=== PATIENT | female | born 1960 | race Caucasian/White ===

== ENCOUNTER → 2017-09-30 17:45 | Outpatient (CLI) | payer OTHER, SELFPAY ==
--- NOTE | 2017-09-30 | DI.MRI.S_ITS ---
PROCEDURE: MR SHOULDER RT WO CON INDICATIONS: SHOULDER PAIN TECHNIQUE: Noncontrast oblique coronal T2 fast spin echo with fat saturation, oblique sagittal T1 spin echo and T2 fast spin echo with fat saturation, axial T1 spin echo and T2 fast spin echo with fat saturation through the shoulder. COMPARISON: None. FINDINGS: Image quality: Excellent. Rotator cuff: Tendinosis and moderate grade articular surface partial thickness tear involving distal supraspinatus is seen at its insertion on humeral head extending to the myotendinous junction. Low to moderate grade bursal surface partial thickness involving anterior fibers distal supraspinatus is also seen near the myotendinous junction. Tendinosis and low to moderate grade articular surface partial thickness tear involving distal infraspinatus at its insertion on humeral head is seen. Tendinosis of a moderate grade intrasubstance partial thickness involving distal subscapularis is also noted. Sagittal images demonstrate no significant muscle atrophy. Bones and bursae: No bone marrow contusions or fractures. Moderate a.c. joint osteoarthritis and mild glenohumeral joint osteoarthritis is seen. The acromion demonstrates conventional anatomy, without an os acromiale. Small amount of joint effusion and small to moderate amount of subacromial subdeltoid bursal fluid is seen. No gross loose body. Capsule and soft tissues: There is signal abnormality and contour irregularity involving superior posterior labrum 11 to 12:00 position suggestive of focal labral tear. The long head of the biceps tendon demonstrates normal location and morphology. The rotator interval appears normal, without fibrosis. The coracohumeral ligament is normal in thickness. IMPRESSION: 1. Osteoarthritic changes in a.c. joint and glenohumeral joint. No fracture or dislocation. 2. Tendinosis and moderate grade articular and bursal surface partial-thickness tear involving distal supraspinatus extending to involve myotendinous junction. Tendinosis of a moderate grade articular surface partial thickness involving distal infraspinatus. Moderate grade intrasubstance partial-thickness tear involving distal subscapularis. 3. Suggestion of focal superior posterior labral tear at 11 to 12:00 position. Dictated by: Israel Dozier M.D. on 09/30/2017 at 20:40 Approved by: Israel Dozier M.D. on 09/30/2017 at 20:45
--- NOTE | 2017-09-30 | DI.MRI.S_ITS ---
PROCEDURE: MR HUMERUS RT WO CON INDICATIONS: SHOULDER PAIN TECHNIQUE: Noncontrast coronal and sagittal T1 spin echo and STIR; axial T1 spin echo and T2 fast spin echo with fat saturation through the right humerus. COMPARISON: None. FINDINGS: Image quality: Excellent. Bones: There is no fracture or dislocation. Ill-defined area of T1 hypointense and T2 hyperintense signal is seen within the joint space of the proximal humeral shaft, and measures approximately 1.4 x 1.5 x 1.4 cm in size. No adjacent marrow edema or cortical erosion. No periosteal reaction or pathologic fracture. No other area of abnormal marrow signal is seen in right humeral shaft.. Soft tissues: The scanned muscles demonstrate normal overall bulk and internal signal. Subcutaneous tissues appear normal as well. No soft tissue masses are present. Bilateral breast implants are intact. IMPRESSION: 1. 1.4 x 1.5 x 1.4 cm ill-defined area of abnormal marrow signal within measuring space of the proximal humeral shaft with no adjacent periosteal reaction, or marrow edema. Finding is more likely to represent a benign process such as enchondroma or nonossifying fibroma. Clinical correlation and periodic radiographic followup is recommended. No pathologic fracture. No other area of abnormal marrow signal. 2. Please correlate with MRI of shoulder report for evaluation of internal derangement. Dictated by: Israel Dozier M.D. on 09/30/2017 at 20:48 Approved by: Israel Dozier M.D. on 09/30/2017 at 20:59
== END ==
PROVIDERS: PCP Physician Assistant Medical; Visit Provider Physician Assistant
DX: M75.111 Incomplete rotator cuff tear or rupture of right shoulder, not specified as traumatic (principal); M19.011 Primary osteoarthritis, right shoulder; M75.21 Bicipital tendinitis, right shoulder; M25.511 Pain in right shoulder
CPT/HCPCS: 73218; 73221

== ENCOUNTER → 2017-12-04 10:24 | Outpatient (CLI) | payer OTHER, SELFPAY ==
--- NOTE | 2017-12-04 | DI.CT.S_ITS ---
PROCEDURE: CT LUNG LOW DOSE SCREENING INDICATIONS: TOBACCO ABUSE TECHNIQUE: Noncontrast 2.0-2.5 mm thick sections acquired from the pulmonary apices to the posterior costophrenic angles. 7 mm thick coronal and sagittal MIP reformats were then acquired. A low radiation dose technique was utilized. COMPARISON: None. FINDINGS: Image quality: Diagnostic, given the low radiation dose technique. Lungs and pleura: No acute consolidation. There is scattered subsegmental atelectasis and/or scarring No pleural effusions or pneumothorax. Central airway bronchial wall thickening 5 mm pulmonary nodule seen in the medial left lower lobe image 99 series 3. Additional 4 mm nodule seen in the lateral left lower lobe on image 111 series 3. Groundglass 2 mm nodule seen in the superior segment of the right lower lobe. Incidentally noted patchy nodular areas of groundglass opacities involving upper lobes presumably respiratory bronchitis (smoking related) Mediastinum: Heart size is normal. Trace anterior pericardial effusion. No mediastinal adenopathy by size criteria. Thoracic aorta and central pulmonary arteries are normal in size. Esophagus is normal in caliber. No hiatal hernia. Bones and chest wall: No suspicious bony lesions. No vertebral body compression fractures. No axillary or supraclavicular adenopathy by size criteria. Thyroid gland unremarkable. Bilateral breast prostheses incidentally noted. There is scoliosis Abdomen: Visualized upper abdomen solid organs and bowel loops appear normal in the absence of contrast. IMPRESSION: Lung RADS 2. Scattered nonspecific bilateral subcentimeter nodules measuring up to 5 mm (left lower lobe) Central bronchial wall thickening suggestive of nonspecific bronchitis. LUNG-RADS 2; recommend [address] followup. Dictated by: Darryn Funk M.D. on 12/04/2017 at 12:32 Approved by: Darryn Funk M.D. on 12/04/2017 at 12:42
== END ==
PROVIDERS: PCP Physician Assistant Medical; Visit Provider Physician Assistant Medical
DX: Z12.2 Encounter for screening for malignant neoplasm of respiratory organs (principal); Z72.0 Tobacco use; R91.8 Other nonspecific abnormal finding of lung field
CPT/HCPCS: 71250

== ENCOUNTER → 2018-01-05 15:02 | Outpatient (CLI) | payer OTHER, SELFPAY ==
--- NOTE | 2018-01-05 | DI.MG.S_ITS ---
BILATERAL DIGITAL SCREENING MAMMOGRAM 3D/2D WITH CAD WITH AUGMENTATION: 01/05/2018 CLINICAL: Routine screening. Comparison is made to exams dated: 02/27/2016 mammogram, 07/06/2013 mammogram, and 12/28/2012 mammogram - [facility]. There are scattered fibroglandular elements in both breasts. Current study was also evaluated with a Computer Aided Detection (CAD) system. Bilateral breast implants are intact. No significant masses, calcifications, or other findings are seen in either breast. There has been no significant interval change. IMPRESSION: NEGATIVE There is no mammographic evidence of malignancy. A 1 year screening mammogram is recommended. NOTE: For mammograms, a report in lay terms will be sent to the patient. Approximately 15% of breast malignancies will not be visualized mammographically. In the management of a palpable breast mass, a negative mammogram must not discourage biopsy of a clinically suspicious lesion. Electronically Signed By: Grace duran/stuart:01/06/2018 14:00:47 letter sent: Normal Exam ACR BI-RADS Category 1: Negative 3341F
== END ==
PROVIDERS: PCP Physician Assistant Medical; Visit Provider Physician Assistant Medical
DX: Z12.31 Encounter for screening mammogram for malignant neoplasm of breast (principal)
CPT/HCPCS: 77063; 77067

== ENCOUNTER 2018-06-15 17:16 | Emergency (ER) | payer OTHER, SELFPAY ==
[2018-06-15 17:23] VITALS: BP 129/60; PULSE 97; RESP 14; TEMP 36.7; O2SAT 98; BMI 22.7
--- NOTE | 2018-06-15 17:27 | ED.BACK ---
HPI - Back Pain/Injury <Snehal Dailey PA-C - Last Filed: 06/15/18 21:39> General Chief Complaint: Back Pain/Injury Stated Complaint: Severe back pain Time Seen by Provider: 06/15/18 17:25 Source: patient Mode of arrival: ambulatory Limitations: no limitations History of Present Illness HPI Narrative: This 57-year-old female comes to ED secondary to exacerbation of chronic back pain. 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 She notes that she is scheduled to have shoulder surgery on and due to that unable to take her usual ibuprofen, which she thinks his part of the problem. She has continued her gabapentin 1200 mg t.i.d. and also Vicodin as needed. She gets sciatica and states she does have pain and tingling radiating down her left leg which is typical with these exacerbations. She states that her leg feels weak at times which she thinks is due to pain, this is also typical of her exacerbations. She states that maybe her groin felt numb 2 days ago, not today. She is not having any difficulty urinating, no bowel changes. She states pain on the left side of her back is worse with especially twisting and bending, and also sneeze, cough, anything that pulls on her back. She denies chest pain or dyspnea. She denies any new rash. She denies any dysuria, hematuria or other new complaints on systems review Related Data Previous Rx's Medication Instructions Recorded cyclobenzaprine 10 mg PO Q8H #10 tab 06/15/18 hydrocodone-acetaminophen [Prospect] 2 tab PO Q4-6H PRN #5 tab 06/15/18 lidocaine [Lidoderm] 2 patch TOP DAILY #30 each 06/15/18 Allergies Allergy/AdvReac Type Severity Reaction Status Date / Time No Known Drug Allergies Allergy Verified 06/15/18 17:23 Review of Systems <Snehal Dailey PA-C - Last Filed: 06/15/18 21:39> Review of Systems ROS Unobtainable: All systems reviewed & are unremarkable except as noted in HPI and below PFSH <Snehal Dailey PA-C - Last Filed: 06/15/18 21:39> Medical History (Updated 06/15/18 @ 18:02 by Snehal Dailey PA-C) COPD (chronic obstructive pulmonary disease) (Chronic) Chronic back pain (Chronic) 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 PULMONARY: Lungs clear to auscultation bilaterally CV: Regular rhythm regular without murmur, normal S1 and S2, no S3 or S4 MUSCULOSKELETAL: No point tenderness over the lumbar spine. Tender over the left superior to mid lumbar paraspinal musculature to the midline at the MSL, where there is palpable tightness. She is able to flex spine to 90 degrees and fully extend with slight endpoint tenderness. Reduced bilateral rotation and lateral bend secondary to tenderness. she is somewhat stiff with sit to stand but gait is normal once moving. Lower extremity strength 5/5 bilateral hip flexors, knee extensors, foot plantar flexion. Negative modified straight leg raise NEUROLOGIC: Bilateral patellar and Achilles DTRs 2+ DERMATOLOGIC: No exanthem Initial Vital Signs Initial Vital Signs: Vital Signs Temperature 98.1 F 06/15/18 17:23 Pulse Rate 97 H 06/15/18 17:23 Respiratory Rate 14 06/15/18 17:23 Blood Pressure 129/60 06/15/18 17:23 Pulse Oximetry 98 06/15/18 17:23 <Jb Castro DO - Last Filed: 06/16/18 02:15> Initial Vital Signs Initial Vital Signs: Vital Signs Temperature 98.1 F 06/15/18 17:23 Pulse Rate 97 H 06/15/18 17:23 Respiratory Rate 14 06/15/18 17:23 Blood Pressure 129/60 06/15/18 17:23 Pulse Oximetry 98 06/15/18 17:23 Course <Snehal Dailey PA-C - Last Filed: 06/15/18 21:39> Vital Signs - 8 hr 06/15/18 17:23 Temperature 98.1 F Pulse Rate 97 H Respiratory Rate 14 Blood Pressure 129/60 Pulse Oximetry 98 <Jb Castro DO - Last Filed: 06/16/18 02:15> Vital Signs - 8 hr 06/15/18 17:23 Temperature 98.1 F Pulse Rate 97 H Respiratory Rate 14 Blood Pressure 129/60 Pulse Oximetry 98 Discharge Plan Departure Patient Disposition: Home Clinical Impression: Sciatica Qualifiers: Laterality: left Qualified Code(s): M54.32 - Sciatica, left side Strain of lumbar region Qualifiers: Encounter type: initial encounter Qualified Code(s): S39.012A - Strain of muscle, fascia and tendon of lower back, initial encounter Discharge Date/Time: 06/15/18 18:14 Interventions: ED Discharge Assessment Last Done: 06/15/18 18:13 Instructions: DI for Back Pain With Sciatica, DI for Back Spasm, DI for Back Strain or Sprain Activity Restrictions/Additional Instructions: Based on your exam and history today, I believe that the carrying branches along with being off of your usual anti-inflammatory ibuprofen has exacerbated your chronic pain and sciatica as well as causing some new strain and muscle spasm. Since you can not take anti-inflammatories right now, please continue or gabapentin. I have also prescribed a muscle relaxant, cyclobenzaprine for you to take as needed, but remember it can cause sleepiness and not to drive while taking it. I have also prescribed some patches for you to put on the sore muscles on your left low back which may help with the pain and tightness there. In addition, you can take your usual hydrocodone/acetaminophen as needed, but again avoid driving. You should return as we talked about if you have any acutely worsening symptoms, i.e. abruptly worsening pain, or new symptoms such as fever or inability to urinate. Please talk with your PCP should you need additional pain medication prior to your planned surgery (I have prescribed a few more hydrocodone/acetaminophen Prescriptions: New cyclobenzaprine 10 mg tablet 10 mg PO Q8H Qty: 10 RF: 0 hydrocodone-acetaminophen [Prospect] 5-325 mg tablet 2 tab PO Q4-6H PRN (Reason: pain) Qty: 5 RF: 0 lidocaine [Lidoderm] 5 % adhesive patch,medicated 2 patch TOP DAILY Qty: 30 RF: 0 Referrals: Annie Medina PA-C [Primary Care Provider] - <Jb Castro DO - Last Filed: 06/16/18 02:15> Cosign ED Attending Paulie Attestation: I was immediately available in the department for consultation. Documentation has been reviewed. I agree with assessment and plan.
== END 2018-06-15 18:14 | disposition home or self-care (01) ==
PROVIDERS: Emergency Provider Internal Medicine; Family Provider Physician Assistant Medical; PCP Physician Assistant Medical
DX: M54.32 Sciatica, left side (principal); S39.012A Strain of muscle, fascia and tendon of lower back, initial encounter; M79.605 Pain in left leg; R53.1 Weakness
CPT/HCPCS: 99282; 99283

== ENCOUNTER → 2019-02-02 08:27 | Outpatient (CLI) | payer OTHER, SELFPAY ==
--- NOTE | 2019-02-02 | DI.MG.S_ITS ---
BILATERAL DIGITAL SCREENING MAMMOGRAM 3D/2D WITH CAD WITH AUGMENTATION: 02/02/2019 CLINICAL: Routine screening. Comparison is made to exams dated: 01/05/2018 mammogram - [facility], 02/27/2016 mammogram, and 07/06/2013 mammogram - [facility]. The tissue of both breasts is heterogeneously dense. This may lower the sensitivity of mammography. Current study was also evaluated with a Computer Aided Detection (CAD) system. Bilateral breast implants are intact. No significant masses, calcifications, or other findings are seen in either breast. There has been no significant interval change. IMPRESSION: NEGATIVE There is no mammographic evidence of malignancy. A 1 year screening mammogram is recommended. This exam was interpreted at Station ID: [id number]. NOTE: For mammograms, a report in lay terms will be sent to the patient. Approximately 15% of breast malignancies will not be visualized mammographically. In the management of a palpable breast mass, a negative mammogram must not discourage biopsy of a clinically suspicious lesion. Electronically Signed By: [place]/stuart:02/02/2019 16:29:05 letter sent: Normal Exam ACR BI-RADS Category 1: Negative 3341F
== END ==
PROVIDERS: PCP Physician Assistant Medical; Visit Provider Physician Assistant Medical
DX: Z12.31 Encounter for screening mammogram for malignant neoplasm of breast (principal)
CPT/HCPCS: 77063; 77067

== ENCOUNTER → 2020-02-25 12:40 | Outpatient (CLI) | payer OTHER, SELFPAY ==
--- NOTE | 2020-02-25 | DI.MG.S_ITS ---
BILATERAL DIGITAL SCREENING MAMMOGRAM 3D/2D WITH CAD WITH AUGMENTATION: 02/25/2020 CLINICAL: Routine screening. Comparison is made to exams dated: 02/02/2019 mammogram, 01/05/2018 mammogram - [facility], and 02/27/2016 mammogram - [facility]. The tissue of both breasts is heterogeneously dense. This may lower the sensitivity of mammography. Current study was also evaluated with a Computer Aided Detection (CAD) system. Bilateral breast implants are intact. No significant masses, calcifications, or other findings are seen in either breast. There has been no significant interval change. IMPRESSION: NEGATIVE There is no mammographic evidence of malignancy. A 1 year screening mammogram is recommended. This exam was interpreted at Station ID: [id number]. NOTE: For mammograms, a report in lay terms will be sent to the patient. Approximately 15% of breast malignancies will not be visualized mammographically. In the management of a palpable breast mass, a negative mammogram must not discourage biopsy of a clinically suspicious lesion. Electronically Signed By: [place]/stuart:02/27/2020 08:28:25 letter sent: Normal Exam ACR BI-RADS Category 1: Negative 3341F
== END ==
PROVIDERS: PCP Physician Assistant Medical; Referring Provider Physician Assistant Medical; Visit Provider Physician Assistant Medical
DX: Z12.31 Encounter for screening mammogram for malignant neoplasm of breast (principal)
CPT/HCPCS: 77063; 77067

== ENCOUNTER 2020-05-17 09:20 | Emergency (ER) | payer OTHER, SELFPAY ==
[2020-05-17 09:34] VITALS: BP 104/53; PULSE 94; RESP 14; TEMP 36.8; O2SAT 100; BMI 21.6
[2020-05-17 11:43] VITALS: BP 108/67; PULSE 79; O2SAT 100
--- NOTE | 2020-05-17 12:05 | PC.NURSE ---
patient reports history of back injury 21 years ago. She is currently taking pain medication but reports that this time the pain is not being managed by her current medication regiment. She states that she does not have any incontinence with GI or . Ice makes pain worse Heat makes it better
--- NOTE | 2020-05-17 12:23 | DI.RAD.S_ITS ---
PROCEDURE: XR LUMBAR SPINE 2-3V INDICATIONS: nontraumatic lumbar back pain in left TECHNIQUE: 2 views of the lumbar spine were acquired. COMPARISON: None. FINDINGS: Bones: 5 [id number] vertebrae are present. There is moderate to severe leftward scoliosis of thoracolumbar spine centered at L2 level. Degenerative endplate changes throughout lumbar spine is seen.. No acute vertebral body compression fractures. No suspicious bony lesions. Soft tissues: Overlying bowel gas pattern is normal. No suspicious soft tissue calcifications. IMPRESSION: Moderate levoscoliosis of lumbar spine with moderate degenerative endplate changes throughout lumbar spine. No acute compression fracture. Dictated by: Israel Dozier M.D. on 05/17/2020 at 13:32 Approved by: Israel Dozier M.D. on 05/17/2020 at 13:45
--- NOTE | 2020-05-17 12:37 | ED.BACK ---
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 Patient reports 2 days ago she had vacuumed car pad and moved wheel barrel with moore which was not too heavy and which she does routinely once a week. She also drove to [facility] to receive 1st dose of COVID vaccination and she started feel the pain in lower back. She sat in the car prolonged time total about 5 hours on that day. Patient reports intermittent numbness to left leg. Patient thinks she has slightly weakness on left leg intermittently which is not new findings. Patient states in the past she had received steroids in the back which caused worsening pain but oral form of steroids is okay to use. Patient takes daily ibuprofen 800 mg 3 times a day and gabapentin 1200 mg 3 times a day for chronic back pain. Last Motrin and gabapentin taken at 5:30 a.m. this morning. She also uses rarely but as needed [place] which she had taken last night at 5:30 p.m.. Patient denies saddle anesthesia, incontinence for bladder or stools. Patient denies fever, chills, nausea or vomiting, previous IV drug use. Patient reports pain increases with standing straight and walking. Related Data Previous Rx's Medication Instructions Recorded cyclobenzaprine 10 mg PO Q8H #10 tab 06/15/18 hydrocodone-acetaminophen [[place]] 2 tab PO Q4-6H PRN #5 tab 06/15/18 lidocaine [Lidoderm] 2 patch TOP DAILY #30 each 06/15/18 cyclobenzaprine 10 mg PO BID PRN #10 tab 05/17/20 lidocaine 1 patch TOPICAL DAILY PRN #30 ea 05/17/20 prednisone 20 mg PO DAILY 5 Days #5 tab 05/17/20 Allergies Allergy/AdvReac Type Severity Reaction Status Date / Time No Known Drug Allergies Allergy Verified 05/17/20 09:34 Review of Systems <SUSSY Dyson - Last Filed: 05/17/20 14:24> Review of Systems Narrative: General: Denies fever, chills, fatigue, malaise, sweats. HEENT: Denies sinus pain, ear pain, sore throat, difficulty swallowing, dizziness. Respiratory: Denies dyspnea, cough, wheezing, hemoptysis, sputum. Cardiovascular: Denies chest pain, palpitations, orthopnea, edema. Gastrointestinal: Denies nausea, vomiting, abdominal pain, diarrhea, constipation, melena. : Denies dysuria, frequency, incontinence, hematuria, urinary retention. Musculoskeletal: See HPI Skin: Denies rash, skin lesions, or other. Neurologic: Denies weakness, headache, numbness, change in speech, confusion, seizures, incoordination. Psychiatric: No concerning psychosocial issues. 12-point review of systems is negative except for those stated above. Patient History <SUSSY Dyson - Last Filed: 05/17/20 14:24> Medical History Chronic back pain COPD (chronic obstructive pulmonary disease) Sciatica associated with disorder of lumbar spine Spinal stenosis Surgical History Status post appendectomy Status post hysterectomy Status post shoulder surgery Social History Smoking Status: Current every day smoker Smoking Status: Current every day smoker alcohol intake frequency: holidays/special occasions only Substance Use Type: does not use Exam <SUSSY Dyson - Last Filed: 05/17/20 14:24> Narrative Exam Narrative: GEN: Alert, oriented x 3, well appearing and nourished, and in no acute distress. Head: Normal cephalic, atraumatic. No scalp or temporal tenderness, palpable mass or rash. EYES: Pupils are equal, round, and reactive to light and accommodation. Extraocular muscles are intact bilaterally. There is no subconjunctival hemorrhage, exudate and sclera non-icteric. ENT: Hearing grossly intact. Airway patent. Neck: Trachea in midline. No JVD, non-tender without lymphadenopathy. No masses or thyroid megaly. Supple, non-tender and no meningeal signs. CARDIAC: Normal regular rate and rhythm without murmurs, gallops, or rubs. No chest wall tenderness. No peripheral edema, cyanosis or pallor. Capillary refill is less than 2 seconds. RESPIRATORY: Lungs are clear to auscultate bilaterally. No cough, wheezes, rales, or rhonchi. No stridor, respiratory distress, increase work of breathing, or accessary muscle used. ABD: Abdomen soft, nontender and non-distended. No guarding or rebound tenderness to palpate. Bowel sounds are normal in all 4 quadrants. There is no palpable masses or organomegaly. EXT: Full painless ROM of all extremities with no loss of sensation, strength, effusion or edema. SKIN: Warm, dry, normal color for patient. No erythema, lesions or rash over visible areas. BACK: Scoliosis. Left side paraspinous tenderness to palpate. Negative leg raise. No other deformity. No rashes, warmth or rashes. No flank tenderness. NEUROLOGICAL: Alert and oriented to place, time and person. Sensation and motor function intact bilaterally. No facial droops, dysphasia. PSYCHIATRIC: Good judgement and reason, without hallucinations, abnormal affect or abnormal behaviors during the examination. Patient is not suicidal. Initial Vital Signs Initial Vital Signs: Vital Signs Temperature 98.3 F 05/17/20 09:34 Pulse Rate 94 H 05/17/20 09:34 Respiratory Rate 14 05/17/20 09:34 Blood Pressure 104/53 L 05/17/20 09:34 Pulse Oximetry 100 05/17/20 09:34 <Earnestine Falcon MD - Last Filed: 05/17/20 18:36> Initial Vital Signs Initial Vital Signs: Vital Signs Temperature 98.3 F 05/17/20 09:34 Pulse Rate 94 H 05/17/20 09:34 Respiratory Rate 14 05/17/20 09:34 Blood Pressure 104/53 L 05/17/20 09:34 Pulse Oximetry 100 05/17/20 09:34 Scores <SUSSY Dyson - Last Filed: 05/17/20 14:24> GCS [place] coma scale eye opening: Spontaneous [place] coma scale verbal response: Orientated [place] coma scale motor response: Obey commands [place] coma scale total score: 15 Course <SUSSY Dyson - Last Filed: 05/17/20 14:24> Orders Ordered: ED Orders 05/17/20 12:23 XR lumbar spine 2-3V Stat Discontinued Medications Ketorolac Tromethamine (Ketorolac 60 Mg/2 Ml Vial) 30 mg IM NOW ONE Stop: 05/17/20 12:24 Last Admin: 05/17/20 12:49 Dose: 30 mg Documented by: BEATRICE Lidocaine (Lidocaine Patch 1 Each Adh..Patch) 1 each TOP NOW ONE Stop: 05/17/20 12:24 Last Admin: 05/17/20 12:50 Dose: 1 each Documented by: BEATRICE Prednisone (Prednisone 20 Mg Tablet) 20 mg PO NOW ONE Stop: 05/17/20 12:24 Last Admin: 05/17/20 12:50 Dose: 20 mg Documented by: BEATRICE Vital Signs Vital signs: Vital Signs - 8 hr 05/17/20 11:43 05/17/20 13:49 Pulse Rate 79 75 Blood Pressure 108/67 111/70 Pulse Oximetry 100 98 <Earnestine Falcon MD - Last Filed: 05/17/20 18:36> Orders Ordered: ED Orders 05/17/20 12:23 XR lumbar spine 2-3V Stat Discontinued Medications Ketorolac Tromethamine (Ketorolac 60 Mg/2 Ml Vial) 30 mg IM NOW ONE Stop: 05/17/20 12:24 Last Admin: 05/17/20 12:49 Dose: 30 mg Documented by: BEATRICE Lidocaine (Lidocaine Patch 1 Each Adh..Patch) 1 each TOP NOW ONE Stop: 05/17/20 12:24 Last Admin: 05/17/20 12:50 Dose: 1 each Documented by: BEATRICE Prednisone (Prednisone 20 Mg Tablet) 20 mg PO NOW ONE Stop: 05/17/20 12:24 Last Admin: 05/17/20 12:50 Dose: 20 mg Documented by: BEATRICE Vital Signs Vital signs: Vital Signs - 8 hr 05/17/20 11:43 05/17/20 13:49 Pulse Rate 79 75 Blood Pressure 108/67 111/70 Pulse Oximetry 100 98 MDM - Back Pain/Injury <SUSSY Dyson - Last Filed: 05/17/20 14:24> Differential Diagnosis Differential diagnosis: Likely lumbar radiculopathy, strain of lumbar region, discitis and other (UTI, kidney stone,) Medical Records Attestation: I reviewed the patient's medical records. Lab Data Attestation: I reviewed the patient's lab results. Labs: Urine Dip Bedside Urine Glucose Negative Bedside Urine Bilirubin - Negative Bedside Urine Ketone - Negative Urine Specific [place] 1.010 Bedside Urine Occult Blood - Negative Bedside Urine pH 6.0 Bedside Urine Protein - Negative Bedside Urine Urobilinogen - Negative Bedside Urine Nitrite - Negative Bedside Urine Leukocytes - Negative Esterase Imaging Data XR-Lumbar: Radiologist's Impression: [address] [id number] ReportSigned Patient: Sachi Wiley RMR#: [id number]: [id number]:[id number]/Sex: 59 / FDate of Service: 05/17/20Loc: EDAccession Number: [id number] Procedure: XR lumbar spine 2-3V Ordering Provider: Simon Zhang PROCEDURE: XR LUMBAR SPINE 2-3V INDICATIONS: nontraumatic lumbar back pain in left TECHNIQUE: 2 views of the lumbar spine were acquired. COMPARISON: None. FINDINGS: Bones: 5 [id number] vertebrae are present. There is moderate to severe leftward scoliosis of thoracolumbar spine centered at L2 level. Degenerative endplate changes throughout lumbar spine is seen.. No acute vertebral body compression fractures. No suspicious bony lesions. Soft tissues: Overlying bowel gas pattern is normal. No suspicious soft tissue calcifications. IMPRESSION: Moderate levoscoliosis of lumbar spine with moderate degenerative endplate changes throughout lumbar spine. No acute compression fracture. Dictated by: Israel Dozier M.D. on 05/17/2020 at 13:32 Approved by: Israel Dozier M.D. 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 Patient does not endorses constitutional symptoms, urinary symptoms, rash on her back, and low risk for infection. Lumbar x-ray does not show acute findings or compression fractures. She has history of levo scoliosis of lumbar spine and known degenerate joint disease. Patient was treated with lidocaine patch, prednisone, Toradol IM injection. Patient has good bilateral strength to lower extremities with intact sensations. Urine test negative indications for infection. Patient drove to ED, advised to take Flexeril as needed for muscle spasm and pain when she gets home with medication precautions. Patient takes Nexium 20-40 mg up to twice a day. Patient discharged to home also with prednisone 20 mg for next 5 day course since she has history of insomnia and sensitivity, lidocaine patch and advised continue her pain treatment regimen. Return precautions discussed with patient and if pain persists, she may need further imaging test and a referral to physical therapy soon as acute pain subsides. She verbalized understanding and agreement with the treatment plan. <Earnestine Falcon MD - Last Filed: 05/17/20 18:36> Lab Data Labs: Urine Dip Bedside Urine Glucose Negative Bedside Urine Bilirubin - Negative Bedside Urine Ketone - Negative Urine Specific [place] 1.010 Bedside Urine Occult Blood - Negative Bedside Urine pH 6.0 Bedside Urine Protein - Negative Bedside Urine Urobilinogen - Negative Bedside Urine Nitrite - Negative Bedside Urine Leukocytes - Negative Esterase Discharge Plan Departure Patient Disposition: Home Clinical Impression: Back pain of lumbar region with sciatica Instructions: DI for Low Back Pain, DI for Sciatica Activity Restrictions/Additional Instructions: You have been diagnosed with [lumbar pain/strain likely with sciatica]. What to do: *Take your medications as directed. You can continue with current back pain regiment. Ibuprofen 400-600 mg up to 3 times a day with food to decrease GI irritations and continue with gabapentin. You can add muscle relaxant Flexeril as needed. This can cause drowsiness so please do not drive, drink alcohol, or operate heavy equipments. Please avoid taking Flexeril and narcotic pain medications together. Prednisone 20 mg daily for next 5 days. You can use lidocaine patch on affected site which stays on for 12 hours and off for 12 hours as needed for pain. You can add Tylenol as well. Tylenol 650 up to 3 to 4 times a day as needed for pain. The medication have been transmitted to [facility] in [place]. *Follow up with your primary care provider in 2-3 days, call for an appointment. Let them know you were seen in the ED and that we asked you to be seen in follow up. *Return to ED if you have any new, worsening, or concerning symptoms, such as [rash on her back, numbness to your groin, incontinence for stool or urine, fever, weakness to lower extremities, chest pain, breathing difficulty, or any acute concerns]. Prescriptions: New cyclobenzaprine 10 mg tablet 10 mg PO BID PRN (Reason: muscle spasm) Qty: 10 RF: 0 prednisone 20 mg tablet 20 mg PO DAILY 5 Days Qty: 5 RF: 0 lidocaine 5 % adhesive patch,medicated 1 patch topical DAILY PRN (Reason: pain) Qty: 30 RF: 0 No Action cyclobenzaprine 10 mg tablet 10 mg PO Q8H Qty: 10 RF: 0 hydrocodone-acetaminophen [[place]] 5-325 mg tablet 2 tab PO Q4-6H PRN (Reason: pain) Qty: 5 RF: 0 lidocaine [Lidoderm] 5 % adhesive patch,medicated 2 patch TOP DAILY Qty: 30 RF: 0 Referrals: Annie Medina PA-C [Primary Care Provider] - <Earnestine Falcon MD - Last Filed: 05/17/20 18:36> Cosign ED Attending Stephanieature Attestation: I was immediately available in the department for consultation throughout this patient's visit. I agree with documentation as above. Earnestine Falcon MD
[2020-05-17] MEDS: KETOROLAC 60 MG/2 ML VIAL 30 MG IM (12:49)
[2020-05-17] MEDS: LIDOCAINE PATCH 1 EACH ADH..PATCH TOP (12:50)
[2020-05-17] MEDS: predniSONE 20 MG TABLET PO (12:50)
[2020-05-17 13:49] VITALS: BP 111/70; PULSE 75; O2SAT 98
== END 2020-05-17 14:14 | disposition home or self-care (01) ==
PROVIDERS: Emergency Provider Nurse Practitioner Family; PCP Physician Assistant Medical
DX: M54.40 Lumbago with sciatica, unspecified side (principal)
CPT/HCPCS: 72100; 81003; 96372; 99283; 99284; J1885

== ENCOUNTER → 2020-06-01 19:28 | Outpatient (CLI) | payer OTHER, SELFPAY ==
--- NOTE | 2020-06-01 19:31 | DI.MRI.S_ITS ---
PROCEDURE: MR LUMBAR SPINE WO CON INDICATIONS: LOW BACK PAIN TECHNIQUE: Noncontrast sagittal T1 spin echo and T2 fast echo, sagittal STIR, axial T1 and T2 fast spin echo through the lumbar spine. In cases with scoliosis, additional coronal T2 fast spin echo may be performed. COMPARISON: [facility], MR, L-SPINE WITHOUT CONTRAST, 12/17/2011, 7:47. FINDINGS: Image quality: Excellent. Alignment and Curvature: There is prominent leftward scoliotic curvature within the lumbar spine with apex at L1-2. Bone Marrow: Marrow is of normal overall signal. Minimal reactive endplate changes are present at L2-3, L3-4, L4-5. No acute vertebral body compression fractures. Spinal Cord: Conus medullaris terminates at the L2 level. Visualized cord demonstrates normal signal and size. Paraspinous Soft Tissues: No paravertebral masses. Discs: Overall moderate disc desiccation is present throughout the lumbar spine. L1-L2: No disc bulge, spinal stenosis or foraminal narrowing. Facet and ligamentum flavum hypertrophy are present. No appreciable interval change. L2-L3: Mild disc bulge with asymmetrically prominent right facet hypertrophy. Moderate spinal stenosis is present, progressive compared to prior exam. Mild bilateral foraminal narrowing, minimally progressive on the left. L3-L4: Mild disc bulge with mild spinal stenosis. Pdya-yh-wbtnpfli left and mild right foraminal narrowing, minimally progressive on the left compared to prior exam. Facet and ligamentum flavum hypertrophy are present. L4-L5: Mild disc bulge with mild spinal stenosis. Severe left and sfuw-ga-eajcngib right foraminal narrowing progressive particularly on the left. Facet and ligamentum flavum hypertrophy are present. L5-S1: Mild disc bulge without spinal stenosis. Severe left and minimal to mild right foraminal narrowing with facet hypertrophy. Marked interval progression is noted on the left. IMPRESSION: 1. Thoracolumbar levoscoliosis. 2. Multilevel foraminal narrowing most severe at L4-5 and L5-S1, progressive compared to prior exam. This is predominantly secondary to curvature as well as facet/ligamentum flavum arthropathy. Dictated by: Leonila Sandhu M.D. on 06/04/2020 at 14:55 Approved by: Leonila Sandhu M.D. on 06/04/2020 at 15:46
== END ==
PROVIDERS: PCP Physician Assistant Medical; Referring Provider Physician Assistant Medical; Visit Provider Physician Assistant Medical
DX: M54.5 Low back pain (principal); M41.86 Other forms of scoliosis, lumbar region; M48.061 Spinal stenosis, lumbar region without neurogenic claudication
CPT/HCPCS: 72148

== ENCOUNTER → 2021-03-07 10:36 | Outpatient (CLI) | payer OTHER, SELFPAY ==
--- NOTE | 2021-03-07 10:37 | DI.MG.S_ITS ---
BILATERAL DIGITAL SCREENING MAMMOGRAM 3D/2D WITH CAD WITH AUGMENTATION: 03/07/2021 CLINICAL: Routine screening. Comparison is made to exams dated: 02/25/2020 mammogram, 02/02/2019 mammogram, and 01/05/2018 mammogram - [facility]. The tissue of both breasts is heterogeneously dense. This may lower the sensitivity of mammography. Current study was also evaluated with a Computer Aided Detection (CAD) system. Bilateral breast implants are intact. No significant masses, calcifications, or other findings are seen in either breast. There has been no significant interval change. IMPRESSION: NEGATIVE There is no mammographic evidence of malignancy. A 1 year screening mammogram is recommended. This exam was interpreted at Station ID: [id number]. NOTE: For mammograms, a report in lay terms will be sent to the patient. Approximately 15% of breast malignancies will not be visualized mammographically. In the management of a palpable breast mass, a negative mammogram must not discourage biopsy of a clinically suspicious lesion. Electronically Signed By: Giovanni hinton/stuart:03/07/2021 15:59:56 letter sent: Normal Exam ACR BI-RADS Category 1: Negative [id number]
== END ==
PROVIDERS: PCP Physician Assistant Medical; Referring Provider Physician Assistant Medical; Visit Provider Physician Assistant Medical
DX: Z12.31 Encounter for screening mammogram for malignant neoplasm of breast (principal)
CPT/HCPCS: 77063; 77067

== ENCOUNTER → 2021-06-28 08:33 | Outpatient (CLI) | payer OTHER, SELFPAY | PROVIDERS: PCP Physician Assistant Medical; Visit Provider Nurse Practitioner Family | DX: J02.9 Acute pharyngitis, unspecified (principal) | CPT/HCPCS: 87070 ==

== ENCOUNTER → 2021-09-02 15:10 | Outpatient (CLI) | payer OTHER, SELFPAY | PROVIDERS: PCP Physician Assistant Medical; Referring Provider Physician Assistant Medical; Visit Provider Physician Assistant Medical | DX: Z78.0 Asymptomatic menopausal state (principal); M85.88 Other specified disorders of bone density and structure, other site | CPT/HCPCS: 77080 ==

== ENCOUNTER → 2022-03-11 13:55 | Outpatient (CLI) | payer OTHER, SELFPAY ==
--- NOTE | 2022-03-11 | DI.MG.S_ITS ---
BILATERAL DIGITAL SCREENING MAMMOGRAM 3D/2D WITH CAD WITH AUGMENTATION: 03/11/2022 CLINICAL: Routine screening. Comparison is made to exams dated: 03/07/2021 mammogram, 02/25/2020 mammogram, and 02/02/2019 mammogram - [facility]. Both breasts are heterogeneously dense, which may obscure small masses (category c / 51-75% glandular tissue). Current study was also evaluated with a Computer Aided Detection (CAD) system. Bilateral breast implants are intact. No significant masses, calcifications, or other findings are seen in either breast. There has been no significant interval change. IMPRESSION: NEGATIVE There is no mammographic evidence of malignancy. A 1 year screening mammogram is recommended. Based on the Tyrer Cuzick model (a risk assessment model) the patient's lifetime risk is 7.7% and her 10 year risk is 3.1%. According to the ACR, ACS, and NCCN guidelines, an annual breast MRI exam along with mammogram is recommended if the patient's lifetime risk is 20% or greater. This exam was interpreted at Station ID: [id number]. NOTE: For mammograms, a report in lay terms will be sent to the patient. Approximately 15% of breast malignancies will not be visualized mammographically. In the management of a palpable breast mass, a negative mammogram must not discourage biopsy of a clinically suspicious lesion. Electronically Signed By: eNw venegas/stuart:03/11/2022 17:45:05 letter sent: Normal Exam ACR BI-RADS Category 1: Negative [id number]
== END ==
PROVIDERS: PCP Physician Assistant Medical; Referring Provider Physician Assistant Medical; Visit Provider Physician Assistant Medical
DX: Z12.31 Encounter for screening mammogram for malignant neoplasm of breast (principal)
CPT/HCPCS: 77063; 77067

== ENCOUNTER → 2022-07-30 11:41 | Outpatient (CLI) | payer OTHER, SELFPAY ==
--- NOTE | 2022-07-30 | DI.RAD.S_ITS ---
PROCEDURE: XR FOOT RT MIN 3V INDICATIONS: RIGHT FOOT PAIN, STATUS POST TRAUMA, EVAL FOR FX TECHNIQUE: 3 views of the foot were acquired. COMPARISON: None. FINDINGS: Bones: No fractures or dislocations. No suspicious bony lesions. Soft tissues: No tibiotalar joint effusion. Achilles tendon appears normal. IMPRESSION: No acute fracture. No osseous lesion. If symptoms and/or clinical suspicion for pathology persist, further assessment with repeat, or advanced imaging (e.g., CT, MRI, or bone scan) may be helpful for further assessment. Dictated by: Snehal Murillo M.D. on 07/30/2022 at 14:06 Approved by: Snehal Murillo M.D. on 07/30/2022 at 14:06
== END ==
PROVIDERS: PCP Physician Assistant Medical; Referring Provider Physician Assistant Medical; Visit Provider Physician Assistant Medical
DX: M79.671 Pain in right foot (principal)
CPT/HCPCS: 73630

== ENCOUNTER → 2022-10-14 12:49 | Outpatient (CLI) | payer OTHER, SELFPAY ==
--- NOTE | 2022-10-14 | DI.CT.S_ITS ---
PROCEDURE: CT LUNG LOW DOSE SCREENING INDICATIONS: Screen for malignant neoplasm of respiratory organ TECHNIQUE: Noncontrast 2.0-2.5 mm thick sections acquired from the pulmonary apices to the posterior costophrenic angles. 7 mm thick axial MIP, and 5 mm coronal and sagittal reformats were then acquired. A low radiation dose technique was utilized. COMPARISON: [facility], CT, CT LUNG LOW DOSE SCREENING, 12/04/2017, 10:29. FINDINGS: Image quality: Diagnostic, given the low radiation dose technique. Lungs and pleura: Compared to CT 12/04/2017, stable pulmonary nodules as index below: -4 mm right lower lobe nodule (3/24), previously 4 mm. -5 mm left lower lobe nodule (3/231), previously 5 mm -4 mm left lower lobe nodule (3/215), previously 4 mm No new or enlarging nodule. Right lower lobe linear atelectasis. Similar central airway bronchial wall thickening. No pleural effusion pneumothorax. Mediastinum: Heart size is normal. No pericardial effusion. No mediastinal adenopathy by size criteria. Thoracic aorta and central pulmonary arteries are normal in size. Esophagus is normal in caliber. No hiatal hernia. Bones and chest wall: No suspicious bony lesions. No vertebral body compression fractures. S shaped scoliosis, as before. No axillary or supraclavicular adenopathy by size criteria. Thyroid gland unremarkable. Bilateral breast implants are present. Abdomen: Visualized upper abdomen solid organs and bowel loops appear normal in the absence of contrast. IMPRESSION: Stable sub 6 mm pulmonary nodules since 12/04/2017. LUNG-RADS 2; recommend to continue annual screening in 12 months with low-dose chest CT. Approved by: Kiki Quinn M.D. on 10/14/2022 at 17:01
== END ==
PROVIDERS: PCP Physician Assistant Medical; Referring Provider Physician Assistant Medical; Visit Provider Physician Assistant Medical
DX: Z12.2 Encounter for screening for malignant neoplasm of respiratory organs (principal); R91.8 Other nonspecific abnormal finding of lung field
CPT/HCPCS: 71271

== ENCOUNTER 2022-12-29 12:23 | Day surgery (SDC) | payer OTHER, SELFPAY ==
--- NOTE | 2022-12-29 | PATH_ITS ---
[facility] Accession Number: [id number] No. of containers..03 Tissue . 01 Material submitted: . PART A: duodenum - DUODENUM PART B: gastrointestinal site - ANTRUM PART C: esophagus, E-G Junction - GE JUNCTION . 01 Diagnosis: A. Duodenum, Biopsy: Duodenal mucosa with no diagnostic abnormality. Negative for active inflammation, features of sprue, dysplasia, or malignancy. . B. Gastric Antrum, Biopsy: Gastric antral mucosa with features of reactive gastropathy. Negative for Helicobacter organisms by immunohistochemistry. Negative for intestinal metaplasia. Negative for dysplasia or malignancy. . C. Gastroesophageal Junction, Biopsy: Squamocolumnar junctional mucosa with specialized intestinal metaplasia; please see comment. Negative for dysplasia or malignancy. [facility] 01/07/2023 1642 Local . 01 Comment: C. 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 . 01 Electronically signed: . Ras Seymour MD, PhD, Pathologist NPI- [id number] . 01 Gross description: . Part A: DUODENUM: Received in formalin are 2 fragment(s) of pickett, soft tissue measuring 0.3 x 0.2 x 0.2 cm to 0.9 x 0.2 x 0.2 cm submitted entirely in 1 cassette(s) Part B: ANTRUM: Received in formalin are 2 fragment(s) of pickett, soft tissue measuring 0.1 x 0.1 x 0.1 cm to 0.2 x 0.2 x 0.1 cm submitted entirely in 1 cassette(s) Part C: GE JUNCTION: Received in formalin is 1 fragment(s) of pickett, soft tissue measuring 0.3 x 0.1 x 0.1 cm submitted entirely in 1 cassette(s) /SHANNAN 12/30/2022 1847 Local . 01 Microscopic: . B. An immunohistochemical stain was performed to evaluate for Helicobacter organisms and is negative. The control stain showed appropriate reactivity. . * This test was developed and its performance characteristics determined by [facility]. It has not been cleared or approved by the U.S. Food and Drug Administration. The FDA has determined that such clearance or approval is not necessary. This test is used for clinical purposes. It should not be regarded as investigational or for research. . 01 Pathologist provided ICD-10: K29.60, K22.70 . 01 CPT . 850862, 085474, 575454, T17003 Specimen Comment: A courtesy copy of this report has been sent to [phone] Performed at: 01 [facility] [address] [place] [address], [place], [place] [id number] MD Giovanni Pal MD Phone: [phone]
[2022-12-29 12:56] VITALS: BMI 19.8
[2022-12-29 13:03] VITALS: BP 102/68; PULSE 95; RESP 16; TEMP 36.5; O2SAT 99
--- NOTE | 2022-12-29 13:03 | P.HP_ITS ---
History of Present Illness History of Present Illness Date Patient Seen: 12/29/22 Time Patient Seen: 13:04 Chief complaint: EGD & Colonoscopy w/poss bx's Narrative: I reviewed the recent office note. Patient clarifies stating she is not having any problems with dysphagia. There is a history of mild anemia and borderline iron studies. She has lost weight. EGD and colonoscopy are therefore requested. [facility] Medical History Spinal stenosis Sciatica associated with disorder of lumbar spine Chronic back pain COPD (chronic obstructive pulmonary disease) Surgical History Status post shoulder surgery Status post hysterectomy Status post appendectomy Social History household members: spouse Smoking Status: Current every day smoker alcohol intake: current Meds Home Medications and Allergies Home Medications Medication Instructions Recorded Confirmed Type gabapentin 600 mg tablet 1,200 mg PO TID 06/28/21 12/29/22 History calcium carbonate 600 mg-vitamin 1 tab PO DAILY 12/29/22 12/29/22 History D3 20 mcg (800 unit) chewable tablet (Caltrate 600 plus D) diphenhydramine HCl 25 mg capsule 25 mg PO BEDTIME PRN Heartburn 12/29/22 12/29/22 History (Benadryl) famotidine 20 mg tablet (Pepcid) 20 mg PO DAILY 12/29/22 12/29/22 History ibuprofen 800 mg tablet 800 mg PO DAILY 12/29/22 12/29/22 History melatonin 10 mg tablet 10 mg PO BEDTIME 12/29/22 12/29/22 History nstiyefm-gyjp-diaw 8 mg-folic 400 1 tab PO DAILY 12/29/22 12/29/22 History mcg-K 50 mcg-lutein 300 mcg tablet (Centrum Silver Women) Allergies Allergy/AdvReac Type Severity Reaction Status Date / Time No Known Drug Allergies Allergy Verified 12/29/22 12:51 Review of Systems Review of Systems ROS: Yes All systems reviewed with the patient and are negative except as otherwise documented Exam Const General: cooperative HENMT Head: normal to inspection Eyes General: appearance normal, both eyes and all related structures Neck Neck: normal visual inspection Chest Chest: normal inspection of the chest Resp Effort & Inspection: normal respiratory effort Cardio Rate: regular rate GI Inspection: normal to inspection Skin General: no rashes or lesions noted Neuro General: patient alert and patient awake Extrem General: normal to inspection and no pedal edema Psych Appearance: grossly normal Assessment & Plan Assessment & Plan narrative: This is a 62-year-old female with weight loss and a mild iron-deficiency anemia. Updated EGD and colonoscopy are pursued today.
--- NOTE | 2022-12-29 13:05 | PM.PREOP ---
Pre-operative Note Interval Note History & Physical reviewed/Exam performed by Physician: Yes Changes to H&P: Yes ASA Class (for procedural sedation): III
[2022-12-29] MEDS: LACTATED RINGERS 1,000 ML 42 ML IV (13:07)
--- NOTE | 2022-12-29 14:02 | PM.OP.EC ---
Operative Date/Time/Diagnoses Date of procedure: 12/29/22 Time of procedure: 14:03 Pre-op diagnosis: Weight loss, iron-deficiency anemia. Post-op diagnosis: same Procedure & Clinicians Study performed: EGD with biopsy and brushing plus colonoscopy Same procedure as scheduled: Yes Indications: Weight loss and iron-deficiency anemia. Surgeon: Terence Street Procedure Notes SCOAP/Timeout: DONE Procedure in detail: AFTER THE RISKS AND BENEFITS WERE EXPLAINED, WRITTEN AND VERBAL INFORMED CONSENT WAS OBTAINED. THE PATIENT WAS BROUGHT INTO THE PROCEDURE ROOM AND PLACED INTO THE LEFT LATERAL DECUBITUS POSITION. Please see anesthesia notes for sedation details. THE SCOPE WAS INTRODUCED INTO THE MOUTH THROUGH THE BITE BLOCK AND ADVANCED UNDER DIRECT VISUALIZATION TO THE 2ND PORTION OF THE DUODENUM. THE SCOPE WAS SLOWLY WITHDRAWN CAREFULLY EXAMINING THE MUCOSA FOR ANY DEFECTS OR LESIONS. RETROFLEXED VIEWS WERE ACCOMPLISHED IN THE STOMACH. THE STOMACH WAS DECOMPRESSED, THE SCOPE WAS THEN REMOVED FROM THE PATIENT WHO TOLERATED THE PROCEDURE WELL. The patient was then turned around. A digital rectal examination was accomplished. The scope was introduced into the rectum and advanced to the cecum as identified by the appendiceal orifice and ileocecal valve. The scope was slowly withdrawn to carefully examine the mucosa for any defects or lesions. Multiple direct views were made through the dentate line for exclusion of pathology. The colon was decompressed. The scope was removed from the patient who tolerated the procedure well. Pediatric colonoscope Bowel prep adequate Scope withdrawal time: 8 minutes Sedation minutes: 28 Complications: none Impression: 1. Duodenum: No pathology was appreciated from the bulb through to the 2nd portion. Random D2 biopsies were taken for exclusion of celiac. 2. Stomach: No gastric outlet obstruction. No ulcers no mass lesions. Mild gastropathy was appreciated throughout and biopsies were therefore acquired for exclusion of H pylori or other pathology. Retroflexed views of the LES were otherwise unremarkable. 3. Esophagus: The squamocolumnar junction seemed to generally correlate with the top of the gastric folds. There was however a sliding subtle hiatal hernia which made judgment of the gastroesophageal junction a little challenging. I suspect this was at about 43 cm from the incisors. The patient had LA grade B erosive esophagitis.. I took a biopsy from the GE junction to exclude specialized intestinal metaplasia. In the midesophagus there were numerous white plaque lesions consistent with Janel overgrowth. These were brushed for cytology and sent for wet prep analysis. 4. Colon: Patient had a moderately tortuous colon. No significant polyps mass lesions or inflammatory features identified throughout. Endoscopic diagnosis 1. Small sliding hiatal hernia 2. LA grade B erosive esophagitis 3. Variable Z-line 4. Suspected esophageal candidiasis 5. Gastropathy 6. Tortuous colon 7. Otherwise visually unremarkable colonoscopy Post-procedure Plan for aftercare: 1. Await histopathology. 2. Continue anti-reflux therapy. Consider escalating therapy from famotidine up to intermittent omeprazole or alternate PPI in light of the presence of esophagitis noted today. 3. Repeat colonoscopy 10 years; sooner should symptoms warrant an earlier exam. 4. A script for a 2 week course of fluconazole will be sent in. Patient is encouraged to contact our clinic in the next 24 hours to learn of the wet prep results and essentially confirmed the presence of yeast overgrowth. Disposition: PACU
[2022-12-29 14:03] VITALS: BP 118/73; PULSE 74; RESP 19; TEMP 36.7; O2SAT 98
[2022-12-29 14:09] VITALS: BP 96/58; PULSE 82; RESP 13; O2SAT 92
[2022-12-29 14:13] VITALS: BP 102/71; PULSE 74; RESP 19; TEMP 36.6; O2SAT 99
[2022-12-29 14:14] VITALS: BP 115/60; PULSE 74; RESP 18; O2SAT 98
== END 2022-12-29 14:39 | disposition home or self-care (01) ==
PROVIDERS: PCP Physician Assistant Medical; Referring Provider Internal Medicine Gastroenterology; Visit Provider Internal Medicine Gastroenterology
PROC: 0DJ08ZZ Inspection of Upper Intestinal Tract, Via Natural or Artificial Opening Endoscopic (ICD-10-PCS; CPT 43235; principal; 2022-12-29 13:30)
PROC: 0DJD8ZZ Inspection of Lower Intestinal Tract, Via Natural or Artificial Opening Endoscopic (ICD-10-PCS; CPT 45378; 2022-12-29 13:30)
DX: D50.9 Iron deficiency anemia, unspecified (principal); R63.4 Abnormal weight loss; K31.9 Disease of stomach and duodenum, unspecified; K44.9 Diaphragmatic hernia without obstruction or gangrene; K20.80 Other esophagitis without bleeding; K22.70 Barrett's esophagus without dysplasia
CPT/HCPCS: 45378; 43239; 87220; J2704

== ENCOUNTER 2023-07-14 17:40 | Emergency (ER) | payer OTHER, SELFPAY ==
[2023-07-14 17:49] VITALS: BP 113/79; PULSE 91; RESP 18; TEMP 36.3; O2SAT 100; BMI 19.8
[2023-07-14 18:01] VITALS: PULSE 83; RESP 27
[2023-07-14 18:02] VITALS: BP 139/77; PULSE 78; RESP 23; O2SAT 97
--- NOTE | 2023-07-14 18:02 | DI.RAD.S_ITS ---
PROCEDURE: XR RIBS RT MIN 3V W CXR 1V INDICATIONS: R sided rib pain after fall TECHNIQUE: 4 views of the ribs were acquired, along with a single view chest. COMPARISON: None. FINDINGS: Surgical changes and devices: Surgical anchor are in the right humoral head. Bones and chest wall: No fractures or dislocations. No suspicious bony lesions. Overlying soft tissues appear unremarkable. Lungs and pleura: No pleural effusions or pneumothorax. Lungs appear clear. Mediastinum: Mediastinal contours appear normal. Heart size is normal. IMPRESSION: No displaced rib fracture or pneumothorax. Dictated by: Galileo Mora M.D. on 07/14/2023 at 18:44 Approved by: Galileo Mora M.D. on 07/14/2023 at 18:45
--- NOTE | 2023-07-14 18:02 | DI.CT.S_ITS ---
PROCEDURE: CT HEAD/BRAIN WO CON INDICATIONS: pass out and hit head TECHNIQUE: Noncontrast 4.5 mm thick angled axial sections acquired from the foramen magnum to the vertex, with coronal and sagittal reformats. For radiation dose reduction, the following was used: automated exposure control, adjustment of mA and/or kV according to patient size. COMPARISON: None. FINDINGS: Image quality: Diagnostic. CSF spaces: Basal cisterns are patent. No extra-axial fluid collections. Ventricles are normal in size and shape. Brain: No midline shift. No intracranial masses or hemorrhage. Jeff-white matter interface is normal. Leukoaraiosis, commonly caused by small vessel ischemic disease. Skull and face: Calvarium and visualized facial bones are intact, without suspicious lesions. Sinuses: Visualized sinuses and mastoids are clear. IMPRESSION: No acute intracranial pathology. Dictated by: Galileo Mora M.D. on 07/14/2023 at 18:35 Approved by: Galileo Mora M.D. on 07/14/2023 at 18:36
--- NOTE | 2023-07-14 18:05 | DI.CT.S_ITS ---
PROCEDURE: CT FACIAL BONES WO CON INDICATIONS: facial injury after fall, right face TECHNIQUE: Noncontrast 2.5 mm thick axial images acquired from the mandible through the frontal sinuses, with coronal and sagittal reformatting. For radiation dose reduction, the following was used: automated exposure control, adjustment of mA and/or kV according to patient size. COMPARISON: None. FINDINGS: Image quality: Excellent. Bones and teeth: Orbital urbina are intact. Sinus urbina show no fracture or deformity. Nasal bones and septum are intact. Visualized portions of the mandible demonstrate no fractures or subluxation. Zygomatic arches are intact. Pterygoid plates are intact. Visualized portions of the skull base and auditory canals are intact. Sinuses: Paranasal sinuses are aerated, without fluid levels, mucosal thickening, or mucoceles. Mastoid air cells are aerated. Soft tissues: No edema, masses, or fluid collections. No enlarged lymph nodes. No soft tissue lacerations or debris. Vascular: Visualized vascular structures appear normal in the absence of contrast. Bony vascular foramina and canals are intact. IMPRESSION: No displaced fracture or air-fluid level. Dictated by: Galileo Mora M.D. on 07/14/2023 at 18:36 Approved by: Galileo Mora M.D. on 07/14/2023 at 18:37
--- NOTE | 2023-07-14 18:16 | DI.CT.S_ITS ---
PROCEDURE: CT CERVICAL SPINE WO CON INDICATIONS: pass out with neck pain TECHNIQUE: Noncontrast 3 mm thick sections acquired from the skull base to the T4 level. Sagittal and coronal reformats were then constructed. For radiation dose reduction, the following was used: automated exposure control, adjustment of mA and/or kV according to patient size. COMPARISON: None. FINDINGS: Image quality: Excellent. Bones: No fractures or dislocations. Visualized superior ribs are intact. Reversal of the normal cervical lordosis. Moderate degenerative disc disease at C5-6 and C6-7, with disc osteophyte complexes. Mild, multilevel facet arthrosis, most prominent on the left side. Soft tissues: Prevertebral soft tissues are normal in thickness. No paravertebral hematomas. No apical pneumothoraces. IMPRESSION: No displaced fracture or traumatic subluxation. Dictated by: Galileo Mora M.D. on 07/14/2023 at 18:26 Approved by: Galileo Mora M.D. on 07/14/2023 at 18:27
[2023-07-14 18:31] VITALS: BP 115/62; PULSE 74
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
[2023-07-14 18:35] LABS: Add Manual Diff / Slide Review NO; Basophils Absolute Auto 100 /uL (0-100); Basophils Percent Auto 1.3 % (0-2); Eosinophils Absolute Auto 100 /uL (0-450); Eosinophils Percent Auto 1.1 % (2-4); Hematocrit 38.3 % (36-46); Hemoglobin 13.1 g/dL (12.0-16.0); Lymphocytes Absolute Auto 2500 /uL (1100-4500); Lymphocytes Percent Auto 25.4 % (25-40); Mean Corpuscular HGB Conc 34.3 % (30-36); Mean Corpuscular Hemoglobin 33.5 PG (26-34); Mean Corpuscular Volume 97.8 fL (80-100); Monocytes Absolute Auto 1000 /uL (0-900); Monocytes Percent Auto 10.4 % (3-14); Neutrophils Absolute Auto 6000 /uL (1500-7000); Neutrophils Percent Auto 61.8 % (50-75); Platelet Count 393 X10^3/uL (150-400); Red Blood Cell Count 3.92 X10^6/uL (4.0-5.2); Red Cell Distribution Width 12.7 % (11.6-14.8); White Blood Cell Count 9.7 X10^3/uL (4.5-11.0)
[2023-07-14 18:52] LABS: Alanine Aminotransferase 17 IU/L (<35); Albumin Globulin Ratio 1.7 (1.0-2.8); Alkaline Phosphatase 95 U/L (38-126); Aspartate Aminotransferase 31 IU/L (14-36); BUN Creatinine Ratio 7.9 (6-22); Bilirubin Total 0.3 mg/dL (0.2-1.3); Blood Urea Nitrogen 6 mg/dL (7-17); Calcium 8.8 mg/dL (8.4-10.2); Carbon Dioxide 26 mmol/L (22-32); Chloride 101 mmol/L (98-107); Estimated Glomerular Filt Rate > 60 mL/min (>60); Globulin 2.4 g/dL (1.7-4.1); Glucose 97 mg/dL (80-110); HEMOLYSIS < 15 (0-50); Lipase 60 U/L (23-300); Potassium 3.9 mmol/L (3.4-5.1); Sodium 131 mmol/L (137-145); Total Protein 6.4 g/dL (6.3-8.2)
[2023-07-14 19:00] VITALS: BP 116/64; PULSE 73; RESP 32; O2SAT 99
[2023-07-14 19:17] VITALS: BP 113/55; PULSE 72; RESP 24; O2SAT 97
== END 2023-07-14 19:28 | disposition home or self-care (01) ==
PROVIDERS: Emergency Medicine; Emergency Provider Emergency Medicine; PCP Physician Assistant Medical
DX: R55 Syncope and collapse (principal); S00.11XA Contusion of right eyelid and periocular area, initial encounter; S20.211A Contusion of right front wall of thorax, initial encounter; W18.30XA Fall on same level, unspecified, initial encounter
CPT/HCPCS: 36415; 70450; 70486; 71101; 72125; 80053; 83690; 85025; 93005; 99284

== ENCOUNTER → 2023-10-28 07:42 | Outpatient (CLI) | payer OTHER, SELFPAY ==
--- NOTE | 2023-10-28 | DI.NM.S_ITS ---
PROCEDURE: NM EXERCISE TREADMILL NON NUC COMPARISON: None. INDICATIONS: ABNORMAL EKG FINDINGS: Patient exercised per the standard [facility] protocol. Total exercise time was 8 minutes 27 seconds. Test was terminated secondary to fatigue. Maximum heart rate obtained is 159 bpm which is 101% of max predicted heart rate. Maximum blood pressure 160/[place] [id number]. JOVANY of -28%. 10.1 METS. No ischemic changes noted. No chest pains voiced. No arrhythmias present. Normal heart rate and blood pressure response to exercise. IMPRESSION: 1. Negative exercise treadmill stress test in terms of ischemia. 2. Above average exercise tolerance. Dictated by: Jeffy Dozier M.D. on 10/28/2023 at 16:44 Approved by: Jeffy Dozier M.D. on 10/28/2023 at 16:46
== END ==
PROVIDERS: PCP Physician Assistant Medical; Referring Provider Internal Medicine; Visit Provider Internal Medicine
DX: R94.31 Abnormal electrocardiogram [ECG] [EKG] (principal)
CPT/HCPCS: 93017

== ENCOUNTER → 2024-06-11 08:58 | Outpatient (CLI) | payer OTHER, SELFPAY ==
--- NOTE | 2024-06-11 09:00 | DI.RAD.S_ITS ---
PROCEDURE: XR FOOT LT MIN 3V INDICATIONS: Twisted left foot TECHNIQUE: 3 views of the foot were acquired. COMPARISON: [facility], CR, XR FOOT RT MIN 3V, 07/30/2022, 11:58. FINDINGS: Bones: Oblique fracture through the mid to distal 5th metatarsal without significant displacement or angulation. No suspicious bony lesions. Soft tissues: No tibiotalar joint effusion. Achilles tendon appears normal. Calcaneal spurs. IMPRESSION: Oblique fracture through the 5th metatarsal Dictated by: Bimal Ramos M.D. on 06/11/2024 at 8:22 Approved by: Bimal Ramos M.D. on 06/11/2024 at 8:24
== END ==
PROVIDERS: PCP Physician Assistant Medical; Referring Provider Nurse Practitioner Family; Visit Provider Nurse Practitioner Family
DX: S92.352A Displaced fracture of fifth metatarsal bone, left foot, initial encounter for closed fracture (principal); S90.32XA Contusion of left foot, initial encounter; X50.0XXA Overexertion from strenuous movement or load, initial encounter
CPT/HCPCS: 73630

== ENCOUNTER → 2024-12-26 15:08 | Outpatient (ROUT) | payer OTHER, SELFPAY ==
[2024-12-26 15:25] LABS: Add Manual Diff / Slide Review NO; Hematocrit 31.4 % (36-46); Hemoglobin 10.1 g/dL (12.0-16.0); Lymphocytes Absolute Auto 1300 /uL (1100-4500); Mean Corpuscular HGB Conc 32.1 % (30-36); Mean Corpuscular Hemoglobin 26.3 PG (26-34); Mean Corpuscular Volume 82.1 fL (80-100); Platelet Count 382 X10^3/uL (150-400)
[2024-12-26 15:31] LABS: Alanine Aminotransferase 5 IU/L (<35); Albumin 3.5 g/dL (3.5-5.0); Albumin Globulin Ratio 1.3 (1.0-2.8); Alkaline Phosphatase 137 U/L (38-126); Blood Urea Nitrogen 9 mg/dL (7-17); Estimated Glomerular Filt Rate > 60 mL/min (>60); Globulin 2.8 g/dL (1.7-4.1); HEMOLYSIS < 15 (0-50); Total Protein 6.3 g/dL (6.3-8.2)
== END ==
PROVIDERS: PCP Physician Assistant Medical; Visit Provider Internal Medicine Infectious Disease
DX: T81.49XA Infection following a procedure, other surgical site, initial encounter (principal); M46.24 Osteomyelitis of vertebra, thoracic region
CPT/HCPCS: 80076; 82565; 84520; 85025